=== PATIENT | male | born 1980 | race Caucasian/White ===

== ENCOUNTER 2017-05-24 08:22 | Emergency (ER) | payer OTHER ==
[~2017-05-24] VITALS: Ht 162.6 cm; Wt 82.0 kg
[~2017-05-24 08:22] MED LIST: TRAM50TA2 PO
[2017-05-24 08:24] VITALS: Ht 162.6 cm; Wt 82.0 kg
[2017-05-24] MEDS ORDERED: NPH10OT RIGHT EAR (08:44)
[2017-05-24 08:55] VITALS: BP 124/74; RESP 18; TEMP 98.7
--- NOTE | 2017-05-24 09:01 | ERD ---
ER Documentation HPI 36-year-old male complaining of right ear pain 1 week. Patient states he is taking Tylenol with mild alleviation. Symptoms started after he was in a sauna at the gym. Denies fever. Denies runny nose. Denies sore throat. Has never had this before. ROS All systems reviewed and are negative except as per history of present illness. Medications Home Meds Active Scripts Neomycin/Polymyxin/Hydrocort* (Cortisporin* Otic) 10 Ml Susp, 4 DROP RIGHT EAR QID for 7 Days, EA Prov:JUDD TERRAZAS PA-C 05/24/17 Tramadol HCl (Tramadol HCl) 50 Mg Tablet, 50 MG PO Q4 Y for PAIN, #20 TAB Prov:KELSEY KING 05/10/16 Allergies Allergies: Coded Allergies: No Known Allergies (Verified Allergy, Mild, 05/09/16) PMhx/Soc History of Surgery: No Anesthesia Reaction: No Hx Neurological Disorder: No Hx Respiratory Disorders: No Hx Cardiac Disorders: No Hx Psychiatric Problems: No Hx Miscellaneous Medical Probl: Yes (L Shoulder Dislocation) Hx Alcohol Use: No Hx Substance Use: No Hx Tobacco Use: Yes Smoking Status: Smoker,current status unk Physical Exam Vitals Vital Signs Date Time Temp Pulse Resp B/P Pulse Ox O2 Delivery O2 Flow Rate FiO2 05/24/17 08:55 98.7 18 124/74 99 05/24/17 08:24 99.0 100 18 124/74 99 Physical Exam GENERAL: The patient is well-appearing, well-nourished, in no acute distress HEENT: Atraumatic. Conjunctivae are pink. Pupils equal, round, and reactive to light. There is no scleral icterus. Tympanic membranes clear bilaterally. Oropharynx clear. Erythema to right external to ear canal. CHEST: Clear to auscultation bilaterally. There are no rales, wheezes or rhonchi. HEART: Regular rate and rhythm. No murmurs, clicks, rubs or gallops. No S3 or S4. Procedures/MDM MDM: 36-year-old male complaining of pain to his right ear canal. Patient's exam does show signs of otitis externa. I will treat with eardrops. I have low suspicion for mastoiditis. I have low suspicion for otitis media. TM is intact with no signs of perforation. I have low suspicion for other bacterial HEENT infections. Patient is discharged with strict ER precautions and recommended to follow-up with primary care within 1-2 days for close evaluation. Patient is told if symptoms change or worsen to return the ER. Departure Diagnosis: Primary Impression: Otitis externa Condition: Stable Patient Instructions: External Ear Infection (Adult) Additional Instructions: FOLLOW UP WITH YOUR PRIMARY CARE PHYSICIAN TOMORROW.Return to this facility if you are not improving as expected. JUDD TERRAZAS PA-C May 24, 2017 09:01
== END 2017-05-24 08:55 | disposition home or self-care (01) ==
LOC: FTE 08:22
DX: H60.91 Unspecified otitis externa, right ear (principal); F17.210 Nicotine dependence, cigarettes, uncomplicated
CPT/HCPCS: 99283

== ENCOUNTER 2017-07-09 08:40 | Emergency (ER) | payer OTHER ==
[~2017-07-09] VITALS: Wt 82.6 kg
[~2017-07-09 08:40] MED LIST changes: +NPH10OT RIGHT EAR
--- NOTE | 2017-07-09 09:43 | RADRPT ---
PROCEDURE: XR Knee. CLINICAL INDICATION: Pain TECHNIQUE: AP, lateral and oblique view of the left knee were obtained. The images reviewed on a PACS workstation. COMPARISON: None. FINDINGS: Three views of the left knee demonstrate no displaced fracture. No gross malalignment is seen. The re is no significant degenerate change. No patellofemoral disease is identified. No knee joint effus ion is seen.. The bones normally mineralized. The soft tissues are unremarkable. IMPRESSION: No acute fracture dislocation RPTAT: HH .Salinas Muniz MD, MD Date Time Electronically viewed and signed by .Salinas Muniz MD, on 07/09/2017 09:43 .W/
[2017-07-09] MEDS ORDERED: NAPR-260 PO (09:53)
--- NOTE | 2017-07-09 09:58 | ERD ---
ER Documentation Chief Complaint Chief Complaint LEFT KNEE PAIN, FALL 2 WEEKS AGO HPI 36-year-old male complaining of left knee pain. Patient states that last 3 weeks ago he fell while playing basketball and did not think anything of the pain. Patient states yesterday he was playing baseball and took his knee brace off and his knee swelled up. He has pain with ambulation. Has taken ibuprofen with mild relief. Denies numbness or tingling. Denies acute traumatic injury. Has never had this pain before. Denies medical problems. NKDA. Surgical history: Denies per ROS All systems reviewed and are negative except as per history of present illness. Medications Home Meds Active Scripts Naproxen* (Naprosyn*) 500 Mg Tablet, 500 MG PO BID Y for PAIN AND/OR INFLAMMATION, #30 TAB Prov:JUDD TERRAZAS PA-C 07/09/17 Neomycin/Polymyxin/Hydrocort* (Cortisporin* Otic) 10 Ml Susp, 4 DROP RIGHT EAR QID for 7 Days, EA Prov:JUDD TERRAZAS PA-C 05/24/17 Tramadol HCl (Tramadol HCl) 50 Mg Tablet, 50 MG PO Q4 Y for PAIN, #20 TAB Prov:KELSEY KING 05/10/16 Allergies Allergies: Coded Allergies: No Known Allergies (Verified Allergy, Mild, 07/09/17) PMhx/Soc History of Surgery: No Anesthesia Reaction: No Hx Neurological Disorder: No Hx Respiratory Disorders: No Hx Cardiac Disorders: No Hx Psychiatric Problems: No Hx Miscellaneous Medical Probl: Yes (L Shoulder Dislocation) Hx Alcohol Use: No Hx Substance Use: No Hx Tobacco Use: Yes Smoking Status: Current some day smoker Physical Exam Vitals Vital Signs Date Time Temp Pulse Resp B/P Pulse Ox O2 Delivery O2 Flow Rate FiO2 07/09/17 08:45 97.1 88 17 110/76 99 Physical Exam GENERAL: The patient is well-appearing, well-nourished, in no acute distress CHEST: Clear to auscultation bilaterally. There are no rales, wheezes or rhonchi. HEART: Regular rate and rhythm. No murmurs, clicks, rubs or gallops. No S3 or S4. EXTREMITIES: Pain with flexion and extension. Strength 5 out of 5. No valgus or varus deformity. No warmth. No obvious swelling. Mild tenderness palpation of the medial joint space. NEUROLOGIC: Alert and oriented. Cranial nerves II through XII intact. Motor strength in all 4 extremities with 5 out of 5 strength. Sensation grossly intact. Normal speech and gait. DTR 2+ throughout. SKIN: There is no apparent rash or petechiae. The skin is warm and dry. Procedures/MDM DIAGNOSTIC IMAGING REPORT Patient: CHIP KELLEY : 1980 Age: 36 Sex: M MR #: [id number] DOS: 07/09/17 0914 Ordering MD: THIAGO TERRAZAS PA-C Location: [facility] Room/Bed: PROCEDURE: XR Knee. CLINICAL INDICATION: Pain TECHNIQUE: AP, lateral and oblique view of the left knee were obtained. The images reviewed on a PACS workstation. COMPARISON: None. FINDINGS: Three views of the left knee demonstrate no displaced fracture. No gross malalignment is seen. There is no significant degenerate change. No patellofemoral disease is identified. No knee joint effusion is seen.. The bones normally mineralized. The soft tissues are unremarkable. IMPRESSION: No acute fracture dislocation ER course: Afshin wrap and crutches given in ED. Patient is neurovascularly intact pre-and post splint application. MDM: 36-year-old male complaining of left knee pain. I have low suspicion for acute fracture dislocation. Patient's x-rays within normal limits and exam is non-concerning. Patient may have partial ligamentous injury or meniscus injury and would benefit from MRI at orthopedic office. Patient will be placed in splint and given crutches to remain nonweightbearing to allow extremity to heal. I have low suspicion for septic joint. Departure Diagnosis: Primary Impression: Knee pain Condition: Stable Patient Instructions: Knee Sprain Referrals: SALLY MOSHER MD (PCP) TOMASA PENA MD [facility] Hours: Sun-Sun 9:00 AM - 5:00 PM Additional Instructions: FOLLOW UP WITH YOUR PRIMARY CARE PHYSICIAN TOMORROW.Return to this facility if you are not improving as expected. JUDD TERRAZAS PA-C Jul 09, 2017 09:58
== END 2017-07-09 10:46 | disposition home or self-care (01) ==
LOC: FTE 08:40
DX: M25.562 Pain in left knee (principal); F17.210 Nicotine dependence, cigarettes, uncomplicated
CPT/HCPCS: 73562; Z7502